=== PATIENT | female | born 1985 | race Caucasian/White ===

== ENCOUNTER 2018-07-25 15:52 | Emergency (ER) | payer MEDICAID ==
[~2018-07-25] VITALS: Ht 157.5 cm; Wt 74.8 kg
[2018-07-25 16:02] VITALS: BP 126/88
--- NOTE | 2018-07-25 17:18 | NUR ---
[facility] DECLINED THIS PT. TO GO UP STAIRS. STATES SHE DOES NOT MEET CRITERIA
== END 2018-07-25 17:21 | disposition home or self-care (01) ==
LOC: ER 15:52
DX: R10.2 Pelvic and perineal pain (principal)
CPT/HCPCS: 99283

== ENCOUNTER 2020-09-28 09:35 | Emergency (ER) | payer OTHER, MEDICAID ==
[~2020-09-28] VITALS: Ht 157.5 cm; Wt 72.7 kg
[2020-09-28 10:18] LABS: BASOPHILS % (AUTO) 0.4 % (0-1); EOSINOPHILS # (AUTO) 0.1 X10'3 (0-0.9); EOSINOPHILS % (AUTO) 1.7 % (0-6); HEMATOCRIT 42.2 % (35.0-45.0); HEMOGLOBIN 14.2 g/dl (12.0-16.0); LYMPHOCYTES # (AUTO) 1.8 X10'3 (1.1-4.8); LYMPHOCYTES % (AUTO) 26.9 % (21-51); MEAN CORPUSCULAR HEMOGLOBIN 29.2 PG (27.0-31.0); MEAN CORPUSCULAR HGB CONC 33.5 g/dL (33.0-36.5); MEAN CORPUSCULAR VOLUME 87.1 FL (78-98); MEAN PLATELET VOLUME 7.3 FL (7.4-10.4); MONOCYTES # (AUTO) 0.5 X10'3 (0-0.9); NEUTROPHILS # (AUTO) 4.3 X10'3 (1.8-7.7); PLATELET COUNT 248 X10'3 (140-440); RED BLOOD COUNT 4.85 X10'6 (4.20-5.60); RED CELL DISTRIBUTION WIDTH 14.1 % (11.5-14.5); WHITE BLOOD COUNT 6.8 X10'3 (4.5-11.0)
[2020-09-28 10:36] LABS: HCG SERUM QL NEGATIVE
[2020-09-28 10:39] LABS: ALANINE AMINOTRANSFERASE 16 U/L (12-78); ALKALINE PHOSPHATASE 62 IU/L (46-116); ANION GAP 9 (8-16); ASPARTATE AMINO TRANSFERASE 15 U/L (10-37); BILIRUBIN,TOTAL 0.4 MG/DL (0.1-1.0); BLOOD UREA NITROGEN 17 MG/DL (7-18); BUN/CREATININE RATIO 18.9 (6.6-38.0); CALCIUM 9.5 MG/DL (8.5-10.1); CHLORIDE 102 MMOL/L (99-107); GLUCOSE 90 MG/DL (70-104); SODIUM 138 MMOL/L (135-145); TOTAL CARBON DIOXIDE 27.3 MMOL/L (24-32); TOTAL PROTEIN 8.2 G/DL (6.4-8.2); eGFR 72 ML/MIN
[2020-09-28] MEDS ORDERED: iohexol 300mg/ml 100ml inj. ONE (10:45)
[2020-09-28] MEDS ORDERED: CELE-193 PO (12:16)
[2020-09-28 12:24] VITALS: BP 103/63
== END 2020-09-28 12:26 | disposition home or self-care (01) ==
LOC: ER 09:36
DX: S30.1XXA Contusion of abdominal wall, initial encounter (principal); R07.89 Other chest pain; Z79.899 Other long term (current) drug therapy; V87.7XXA Person injured in collision between other specified motor vehicles (traffic), initial encounter; Y93.89 Activity, other specified; Y92.488 Other paved roadways as the place of occurrence of the external cause; Y99.8 Other external cause status
CPT/HCPCS: 36415; 71260; 74178; 80053; 84703; 85025; 99285; Q9967

== ENCOUNTER 2024-03-09 17:17 | Emergency (ER) | payer MEDICAID, SELFPAY ==
[~2024-03-09] VITALS: Ht 157.5 cm; Wt 77.3 kg
[~2024-03-09 17:17] MED LIST: HYDR50TA65 PO; PRAZ2CAP2 PO; VENL37.589 PO
[2024-03-09] MEDS ORDERED: FAMO20TA8 PO (17:54)
[2024-03-09] MEDS ORDERED: GABA-530 PO (17:54)
[2024-03-09] MEDS ORDERED: NAPR-56 PO (17:54)
[2024-03-09] MEDS ORDERED: LIDO1ADH58 TOP (17:55)
[2024-03-09] MEDS: ketorolac trometh 30MG/ML vial 30 MG/ML VIAL IM ONE (18:03)
[2024-03-09] MEDS: orphenadrine citrate 60mg/2ml inj. IM ONE (18:04)
[2024-03-09 18:23] VITALS: BP 133/70; PULSE 79; RESP 18; TEMP 97.9; O2SAT 98
== END 2024-03-09 18:25 | disposition home or self-care (01) ==
LOC: ER 17:18
DX: M54.50 Low back pain, unspecified (principal); Z79.899 Other long term (current) drug therapy
CPT/HCPCS: 96372; 99284; J1885; J2360

== ENCOUNTER 2024-12-03 09:28 | Emergency (ER) | payer MEDICAID ==
[~2024-12-03] VITALS: Ht 158.8 cm; Wt 73.2 kg
[~2024-12-03 09:28] MED LIST changes: +FAMO20TA8 PO; +GABA-530 PO; +LIDO1ADH58 TOP
[2024-12-03 09:37] VITALS: BP 131/93; PULSE 95; O2SAT 99
[2024-12-03] MEDS: diazepam 5mg tablet PO ONE (11:22)
[2024-12-03 11:23] VITALS: RESP 18
[2024-12-03] MEDS: oxyCODONE/APAP 10/325mg tablet PO ONE (11:23)
--- NOTE | 2024-12-03 11:29 | RADIOLOGY REPORT ---
EXAM: DI CERVICAL SPINE CMPLT HISTORY: neck spine COMPARISON: None Technique: Cervical spine, 6 views including bilateral oblique views FINDINGS: Vertebral body heights are intact. Vertebral alignment is intact. The atlantoaxial interval is with in normal limits. Lateral masses of C1 and C2 are well aligned. Intervertebral disc spaces are intact. No significant discogenic endplate change is noted. The post erior facet joints are unremarkable. The osseous neural foramina appear patent. Prevertebral soft tissues are normal in thickness. Paraspinal soft tissues are grossly unremarkable. IMPRESSION: 1. Reversal of normal lordosis that could be positional, reflect muscle spasm or pain. Correlate clin ically. 2. No acute osseous abnormality or significant degenerative changes of the cervical spine.
--- NOTE | 2024-12-03 11:30 | Physician Documentation ---
History of Present Illness ~ Chief Complaint: Neck pain Stated Complaint: NECK PAIN Time Seen by MD: 10:41 Primary Medical Doctor: NONE HPI Patient presents with a chronic neck pain pain with range of motion and general neck stiffness. Does drink excessive alcohol. Has a history of gastritis in his unable to take NSAIDs. States she has been taking Tylenol without much improvement. Denies any acute injury Day of Onset: December 03, 2024 Medication Reconciliation Allergies: Coded Allergies: NSAIDS (Non-Steroidal Anti-Inflamma (Unverified Adverse Reaction, Unknown, GASTRITIS, 12/03/24) Scheduled Famotidine (Famotidine), 1 TAB PO Q12H Gabapentin (Gabapentin), 1 CAP PO qhs Hydroxyzine HCl (Hydroxyzine HCl), 1 TAB PO HS, (Reported) Prazosin Hcl (Prazosin Hcl), 1 CAP PO HS, (Reported) Venlafaxine Hcl (Venlafaxine Hcl Er), 1 CAP PO HS, (Reported) Scheduled PRN Lidocaine (Ztlido), 1 PATCH TOP QDAY PRN PRN for pain Past Medical History Past Medical History: No Pertinent History Past Surgical History: noncontributory Drug Use: none Lives In: Home Occupation: employed Review of Systems All Other Systems at this time: Reviewed and Negative ROS As stated above in the HPI, otherwise all systems are reviewed and negative. Physical Exam Vital Signs: Temperature: 98.7, Source: Temporal, Heart Rate: 95, Respiratory Rate: 18, BP: 131/93, Pulse Oximetry: 99, Weight: 73.150 Oxygen Flow Rate: 0 Physical Exam General: Alert, no apparent distress. HEENT: PERRL, EOMI, no injection, moist mucous membranes. Neck: Full range of motion. Respiratory: Lungs clear, no respiratory distress. Chest: No accessory muscle use. Cardiovascular: Regular rate and rhythm, no murmurs. Gastrointestinal: Soft, nontender, nondistended. Bowels sounds present. Extremities: Normal range of motion, no deformity. Neurologic: Oriented x4. Psychiatric: Normal mood and affect. Skin: Normal color, warm and dry. No edema, no ecchymosis. Progress Results/Orders Results/Orders Orders - MAKSIM SOSA MEDICAL PRACTICE MANAGER Cervical Spine Cmplt (12/03/24 ) Completed Orders - MAKSIM SOSA MEDICAL PRACTICE MANAGER Cervical Spine Cmplt (12/03/24 ) Oxycodone/Acetaminophen Tablet (Percocet (12/03/24 11:00) Diazepam Tablet (Valium Tablet) (12/03/24 11:00) Medications Received in ER Medications (Trade) Dose Ordered Sig/Maksim Route PRN Reason Start Time Stop Time Status Last Admin Dose Admin (Percocet 10-325 mg tab) 1 tab ONCE ONCE PO 12/03/24 11:00 12/03/24 11:02 DC 12/03/24 11:23 1 TAB (Valium tablet) 10 mg ONCE ONCE PO 12/03/24 11:00 12/03/24 11:02 DC 12/03/24 11:22 10 MG Vital Signs 12/03/24 12/03/24 12/03/24 09:37 11:23 11:35 Temp 98.7 98.7 Pulse 95 Resp 18 18 B/P (MAP) 131/93 Pulse Ox 99 O2 Flow Rate 0 Medical Decision Making Findings Treated patient for likely cervical disc sprain. Suspect alcohol abuse in and likely an inflammatory process. treaed for pain and discharge her outpatient therapy Differential Dx:Considerations: Include: Cervical muscle spasm, Discitis, DJD, Meningitis, Thyroiditis, Torticollis, Vertebral artery dissect., Other Departure Disposition: HOME / SELF CARE / HOMELESS Impression: Primary Impression: Neck pain Additional Impression: Strain of neck muscle Condition: Stable Discharge Instructions: Cervical Sprain Referrals: NO PRIMARY CARE PROVIDER (PCP) Education Educated: Patient Educated regarding: diagnosis Signature Scribe Signature: H Attestation: The note accurately reflects work and decisions made by me.Maksim Jara NP 12/03/24 15:31 MAKSIM SOSA NP December 03, 2024 11:30
[2024-12-03 11:35] VITALS: TEMP 98.7
== END 2024-12-03 11:38 | disposition home or self-care (01) ==
LOC: ER 09:29
DX: S16.1XXA Strain of muscle, fascia and tendon at neck level, initial encounter (principal); Z88.6 Allergy status to analgesic agent; Z79.899 Other long term (current) drug therapy; X58.XXXA Exposure to other specified factors, initial encounter; Y93.89 Activity, other specified; Y92.89 Other specified places as the place of occurrence of the external cause; Y99.8 Other external cause status
CPT/HCPCS: 72050; 99283